=== PATIENT | female | born 1965 | race Caucasian/White ===

== ENCOUNTER → 2017-01-07 | Outpatient (CLI) | payer OTHER ==
--- NOTE | 2017-01-07 09:39 | MM ---
Reason for exam: screening (asymptomatic). Last mammogram was performed 1 year and 2 months ago. History: Patient has history of other cancer at age 34. Family history of breast cancer in cousin at age 55. Physical Findings: A clinical breast exam by your physician is recommended on an annual basis and results should be correlated with mammographic findings. MG 3D Screening Mammo W/Cad Bilateral CC and MLO view(s) were taken. Prior study comparison: November 23, 2015, bilateral MG 3d screening mammo w/cad. September 28, 2014, right breast MG work up mamm w CAD RT. There are scattered fibroglandular densities. Finding: There are typically benign round calcifications in both breasts. There is no discrete abnormality. ASSESSMENT: Benign, BI-RAD 2 RECOMMENDATION: Routine screening mammogram of both breasts in 1 year.
== END | disposition home or self-care (01) ==
LOC: RADMAMWWP 07:47
PROVIDERS: ATTEND Obstetrics & Gynecology
DX: Z12.31 Encounter for screening mammogram for malignant neoplasm of breast (principal)
CPT/HCPCS: 77063; G0202

== ENCOUNTER → 2017-10-30 | Outpatient (CLI) | payer OTHER ==
[2017-10-30 15:50] LABS: T4, Free (Free Thyroxine) 1.26 ng/dL (0.78-2.19)
== END | disposition home or self-care (01) ==
LOC: LABWHC1 14:47
PROVIDERS: ATTEND Internal Medicine Endocrinology, Diabetes & Metabolism
DX: E78.2 Mixed hyperlipidemia (principal); E89.0 Postprocedural hypothyroidism; E55.9 Vitamin D deficiency, unspecified
CPT/HCPCS: 36415; 82306; 84439; 84443

== ENCOUNTER → 2018-01-16 | Outpatient (CLI) | payer OTHER ==
--- NOTE | 2018-01-19 10:50 | MM ---
Reason for exam: screening (asymptomatic). Last mammogram was performed 1 year ago. History: Patient has history of other cancer at age 34. Family history of breast cancer in cousin at age 55. Physical Findings: A clinical breast exam by your physician is recommended on an annual basis and results should be correlated with mammographic findings. MG 3D Screening Mammo W/Cad Bilateral CC and MLO view(s) were taken. Prior study comparison: January 07, 2017, bilateral MG 3d screening mammo w/cad. November 23, 2015, bilateral MG 3d screening mammo w/cad. The breast tissue is heterogeneously dense. This may lower the sensitivity of mammography. There is a 3 x 4mm mass with an associated punctate calcification in the lower inner quadrant of the left, 5-6cm from nipple at middle depth. No suspicious abnormality on the right. ASSESSMENT: Incomplete: need additional imaging evaluation, BI-RAD 0 RECOMMENDATION: Special view mammogram of the left breast. If lesion persists on supplemental views, image directed ultrasound is recommended. [facility] will attempt to contact patient to return for supplemental views and ultrasound if indicated.
== END | disposition home or self-care (01) ==
LOC: RADMAMWWP 15:39
PROVIDERS: ATTEND Obstetrics & Gynecology
DX: Z12.31 Encounter for screening mammogram for malignant neoplasm of breast (principal)
CPT/HCPCS: 77063; 77067

== ENCOUNTER → 2018-01-20 | Outpatient (CLI) | payer OTHER ==
--- NOTE | 2018-01-21 09:08 | MM ---
Reason for exam: additional evaluation requested from abnormal screening. Last mammogram was performed less than 1 month ago. History: Patient has history of other cancer at age 34. Family history of breast cancer in cousin at age 55. Physical Findings: Nurse did not find any significant physical abnormalities on exam. MG 3D Work Up W/Cad LT Spot compression CC, spot compression MLO, and ML view(s) were taken of the left breast. Prior study comparison: January 16, 2018, bilateral MG 3d screening mammo w/cad. January 07, 2017, bilateral MG 3d screening mammo w/cad. The breast tissue is heterogeneously dense. This may lower the sensitivity of mammography. There is a 3mm mass in the left lower inner quadrant 5cm from nipple. with an associated calcification that persists on additional views. There is also a lobulated mass 6mm, 6cm from nipple at 8 o'clock with internal calcifications. These results were verbally communicated with the patient and result sheet given to the patient on 01/20/18. ASSESSMENT: Incomplete: need additional imaging evaluation, BI-RAD 0 RECOMMENDATION: Ultrasound of the left breast. (lower inner quadrant)
--- NOTE | 2018-01-21 09:40 | USB ---
History: Patient has history of other cancer at age 34. Family history of breast cancer in cousin at age 55. US Breast Workup Limited LT Left limited breast ultrasound including focal area of concern, retroareolar and axilla demonstrates a 7 x 3 x 7mm oval, hypoechoic lesion at 8 o'clock thought to correlate with mammographic finding at 6 cm from nipple. Correlate on post biopsy marker placement imaging. These results were verbally communicated with the patient and result sheet given to the patient on 01/20/18. ASSESSMENT: Suspicious, BI-RAD 4 RECOMMENDATION: Ultrasound core biopsy of the left breast. Called Dr. Garibay with mammographic findings and has scheduled an appointment for the patient for 01/30/18 at 9:[address] Gilmore. Biopsy scheduled for 02/02/18 at 8:00. PRELIMINARY REPORT CALLED AND FAXED TO DR. GILMORE ON 01/20/18.
== END | disposition home or self-care (01) ==
LOC: RADMAMWWP 12:42
PROVIDERS: ATTEND Obstetrics & Gynecology
DX: R92.8 Other abnormal and inconclusive findings on diagnostic imaging of breast (principal)
CPT/HCPCS: 77061; 77065

== ENCOUNTER → 2018-01-30 | Outpatient (CLI) | payer OTHER ==
[2018-01-30 16:13] VITALS: BP 143/86; PULSE 92; RESP 18; TEMP 98; BMI 35.2
--- NOTE | 2018-01-30 17:16 | P.GSHP ---
History of Present Illness H&P Date: 01/30/18 Chief Complaint: Abnormal mammogram Patient is a 52-year-old white female who presents for evaluation related to a mammographic abnormality noted on a screening mammogram. She had a bilateral screening mammogram performed on [id number]. On this study at 3 x 4 mm mass with associated punctate calcification was noted in the lower inner quadrant of the left breast. She subsequently had diagnostic mammograms performed which revealed 2 nodular areas that which was initially seen and a second area which was 6 mm lobulated area within internal calculi calcification at the 8 o'clock position. The patient then had a ultrasound performed which identified the second lesion seen but not the first. The patient herself has not felt any masses in her breast. She has been of any pain in her breast. She has no abnormal nipple discharge or skin changes. The patient has a questionable history of trauma to the breast in summer. The patient has no history of any infection in the breast. Had any biopsies of the breast and no surgery to the breast. Family history: 1. patient: thyroid cancer 2. mother: pancreatic cancer 3. father: lung cancer Hormonal History: menarche: 13 : 4, 4 children, first at 26, breast fed: all Periods: irregular BCP: none hormones: none Past Surgical History: 1. thyroid resection total removed 2. right knee meniscus Past Medical History: 1. siclke cell trait 2. Reynard's 3. Mario's 4. Persistent elevated d-dimer 5. being tested for factor V Social History: smoke: none alcohol: none drugs: none - Constitutional Constitutional: Denies chills, Denies fever - EENT Eyes: denies blurred vision, denies pain Ears: deny: decreased hearing, tinnitus Ears, nose, mouth and throat: Denies headache, Denies sore throat - Breasts Breasts: bilateral: as per HPI - Cardiovascular Cardiovascular: Denies chest pain, Denies shortness of breath - Respiratory Comment: asthma Respiratory: Denies cough, Denies 7 - Gastrointestinal Gastrointestinal: Denies abdominal pain, Denies diarrhea, Denies nausea, Denies vomiting - Genitourinary (Female) Genitourinary: Denies dysuria, Denies hematuria - Menstruation Comment: irregular periods - Musculoskeletal Comment: arthritis - Integumentary Integumentary: Denies pruritus, Denies rash - Neurological Neurological: Denies numbness, Denies weakness - Psychiatric Psychiatric: Denies anxiety, Denies depression - Endocrine Comment: thyroid cancer, no radioactive iodine - Hematologic/Lymphatic Comment: aspirin - Allergic/Immunologic Allergic/Immunologic: Reports seasonal allergies Past Medical History Past Medical History: Cancer, Thyroid Disorder Additional Past Medical History / Comment(s): Thyroid cancer History of Any Multi-Drug Resistant Organisms: None Reported Additional Past Surgical History / Comment(s): thyroidectomy, Torn medial meniscus Right knee, Past Psychological History: No Psychological Hx Reported Smoking Status: Never smoker Past Alcohol Use History: None Reported Past Drug Use History: None Reported Medications and Allergies Home Medications Medication Instructions Recorded Confirmed Type Aspirin [Adult Low Dose Aspirin EC] 81 mg PO DAILY 02/05/16 01/30/18 History Cholecalciferol [Vitamin D3] 10,000 unit PO DAILY 03/20/16 01/30/18 History Levothyroxine Sodium [Synthroid] 137 mcg PO DAILY 03/20/16 01/30/18 History Loratadine [Claritin] 10 mg PO DAILY 03/20/16 01/30/18 History Fish Oil/Dha/Epa [Fish Oil 1,200 1 each PO DAILY 01/23/18 01/30/18 History mg Fish Oil] Rosuvastatin Calcium [Crestor] 5 mg PO DAILY 01/23/18 01/30/18 History Allergies Allergy/AdvReac Type Severity Reaction Status Date / Time Sulfa (Sulfonamide AdvReac WBC's drop. Verified 01/30/18 16:16 Antibiotics) Surgical - Exam Vital Signs Temp Pulse Resp BP Pulse Ox 98 F 92 18 143/86 99 01/30/18 16:06 01/30/18 16:06 01/30/18 16:06 01/30/18 16:06 01/30/18 16:06 BMI 35.2 - General well developed, well nourished, no distress - Eyes normal ocular movement - ENT no hearing loss, no congestion - Neck no masses, trachea midline - Respiratory normal respiratory effort, clear to auscultation - Cardiovascular Rhythm: regular Heart Sounds: normal: S1, S2 - Abdomen Abdomen: soft - Integumentary no abnormal pigmentation - Neurologic no disoriented, no combative - Musculoskeletal normal gait, normal posture - Psychiatric oriented to time, oriented to person, oriented to place, speech is normal, memory intact breast exam: right breast: Ultimate positional exam no dominant masses or nodules of concern Right axilla: No adenopathy of concern Left breast: Multi-positional exam no dominant masses or nodules of concern Left axilla: No adenopathy of concern Results mammogram and ultrasound radiographs reviewed with radiologist Assessment and Plan Assessment: Impression: 1. 2 nodular areas noted in the left breast 1 identified by ultrasound and core biopsy recommended 2. Second nodular area which was initially seen on the screening mammogram was not seen by ultrasound depending on the pathology results of the first lesion would consider stereotactic core biopsy of the second lesion 3. Fibrocystic breast changes 4. Hypothyroidism 5. Prior history of thyroid cancer 6. Family history of pancreatic and lung cancer Plan: 1. Ultrasound-guided core biopsy of nodular area in the left breast await results of this biopsy to recommend a course for this second nodular area seen on the initial diagnostic mammogram 2. Follow-up 1 week after ultrasound-guided core biopsy of the lesion in the left breast CC: Dr. Garibay
== END | disposition home or self-care (01) ==
LOC: WWCWWP 16:00
PROVIDERS: ATTEND Surgery
DX: Z53.9 Procedure and treatment not carried out, unspecified reason (principal)

== ENCOUNTER → 2018-02-02 | Day surgery (SDC) | payer OTHER ==
[2018-02-02 07:19] VITALS: BP 148/94; PULSE 88; RESP 16; TEMP 98.6; BMI 35.2
--- NOTE | 2018-02-02 10:38 | USB ---
Discontinued ultrasound core biopsy left breast HISTORY: Left 8:00 lesion COMPARISON: Ultrasound breast: 2318 and mammography dated 01/20/2019 The lesion at the left 8:00 position could not be reproduced confidently for attempted biopsy. MRI of the breasts is recommended. This was discussed with the patient. IMPRESSION: Incomplete assessment BI-RADS 0 Recommendation: MRI of the bilateral breast with attention to the left 8 o'clock position.
== END ==
LOC: RADUSWWP 06:59
PROVIDERS: ATTEND Surgery
DX: R92.8 Other abnormal and inconclusive findings on diagnostic imaging of breast (principal); Z53.8 Procedure and treatment not carried out for other reasons

== ENCOUNTER → 2018-02-25 | Outpatient (CLI) | payer OTHER ==
--- NOTE | 2018-02-27 07:47 | BMR ---
EXAMINATION TYPE: MR breast BILAT wo/w con DATE OF EXAM: 02/25/2018 COMPARISON: Exams dated 01/07/2017, 01/16/2018, 01/20/2018, and 02/02/2018 HISTORY: Abnormal mammogram TECHNIQUE: A series of fat and water weighted images in the long and short axis views of both breasts are obtained in conjunction with dynamic contrast MRI with subtraction technique. The patient was i njected with 10 mL intravenous Gadavist gadolinium contrast. Three-dimensional and additional postp rocessing imaging is created on independent workstation and reviewed during official interpretation o f this study. FINDINGS: The breasts are composed of heterogenous fibroglandular tissue and there is mild symmetric background parenchymal enhancement. A small T2 hyperintense 6 mm cyst without internal enhancement that demonstrates T1 hypointensity is seen at the 8:00 position approximately 6.2 cm from the nipple thought to correspond to the mammograp hic lobulated mass at the 8:00 position. Additionally near the 9:00 position there is a 3 mm T2 hyper intense nonenhancing small cyst that is T1 hypointense approximately 3 cm from the nipple. This is th ought to correspond to the mammographic finding. In the upper outer quadrant of the right breast appr oximately 7.7 cm from the nipple there is a 5 mm cyst. Other scattered cysts are sub-4 mm bilaterally . There is no suspicious mass or nonmass enhancement in either breast. Small clustered cysts are seen i n the upper outer quadrant of the left breast at anterior depth. No suspicious internal mammary or in tramammary adenopathy is present within either breast. Axillary lymph nodes bilaterally appear nonenl arged and short axis. IMPRESSION: BI-RADS 3-probably benign findings. No MRI evidence of malignancy. The lower inner quadrant masses an d anterior and middle depth appear as cysts on MRI without suspicious enhancement. However precaution rere short-term follow-up diagnostic left breast MRI and ultrasound are recommended to ensure stabilit y given the previous recommendation of biopsy.
== END | disposition home or self-care (01) ==
LOC: RADMRIMAIN 12:41
PROVIDERS: ATTEND Surgery
DX: R92.8 Other abnormal and inconclusive findings on diagnostic imaging of breast (principal)
CPT/HCPCS: 77059; 0159T; A9585

== ENCOUNTER 2018-05-25 06:51 | Day surgery (SDC) | payer OTHER ==
[2018-05-22 08:22] VITALS: BMI 34.4
[~2018-05-25 06:51] MED LIST: DEXAMETHASONE SOD PHOSPHATE 10 MG/ML 1 ML VIAL IV ONE; LACTATED RINGERS 1,000 ML IV SCH; LIDOCAINE 1% 20 ML VIAL (10MG/ML) FOR IV START INTRADERMA PRN; MIDAZOLAM 2 MG/2 ML VIAL IV PRN; ceFAZolin IN SWFI 2 GM/20 ML SYRINGE IVP ONE; fentaNYL (PF) 50 MCG/ML 2 ML AMP IV PRN
[2018-05-25] MEDS ORDERED: KETOROLAC 30 MG/ML 1 ML VIAL ONE (08:20)
[2018-05-25] MEDS ORDERED: SUCCINYLCHOLINE CHLORIDE 100 MG/5 ML SYR IV ONE (08:20)
[2018-05-25] MEDS ORDERED: LIDOCAINE 1% INJ 10MG/ML (20 ML MDV) ONE (08:20)
[2018-05-25] MEDS ORDERED: fentaNYL (PF) 50 MCG/ML 2 ML AMP ONE (08:20)
[2018-05-25] MEDS ORDERED: PROPOFOL 10 MG/ML 20 ML VIAL IV ONE (08:20)
[2018-05-25] MEDS ORDERED: MIDAZOLAM 2 MG/2 ML VIAL ONE (08:20)
--- NOTE | 2018-05-25 08:46 | P.OP ---
Date of Procedure: 05/25/18 Preoperative Diagnosis: Increased endometrial thickness, endometrial polyp suggested by sonogram Postoperative Diagnosis: Endometrial polyps, pathology pending Procedure(s) Performed: D&C, hysteroscopy, endometrial polypectomy Anesthesia: THAIS Surgeon: Indira Garibay Estimated Blood Loss (ml): 5 IV fluids (ml): 400 Urine output (ml): 200 Pathology: other (Endometrial curettings and polyps) Condition: stable Disposition: PACU Operative Findings: Endometrial polyps and debris Description of Procedure: Patient is brought to the operating suite where a general anesthetic is administered. She's placed in the dorsal lithotomy position. The cervix, vagina, perineal bodies are all prepped and draped in usual sterile fashion. The appropriate timeout is performed to assure proper patient and procedural identification. No antibiotics are deemed necessary. Urine hCG is negative. Examination under anesthesia reveals a small anteverted uterus, mobile, smooth. Negative adnexa bilaterally. The bladder is drained for approximately 200 mL of clear yellow urine. Weighted speculum was placed into the vagina. Anterior lip of the cervix is grasped with a double-tooth tenaculum. Uterus sounds to a depth of 9 cm in the anteverted position. Cervix is gently and systematically dilated using Hanks dilators. Hysteroscope was introduced and the cavity is distended with sterile saline. Small endometrial polyp along with endometrial proliferative-type tissue is noted. Hysteroscope was removed. A medium sharp curette is used and the polyp is removed along with a moderate amount of endometrial tissue. When this is thoroughly completed, the hysteroscope was once again introduced. The cavity appears to be completely clear. Tenaculum is removed. All sponge needle and enhancement counts are correct at the end of the procedure. Patient is brought back to the recovery room in stable condition. Toradol is given prior to leaving the room. Patient is brought back to the recovery room with a pulse of 56, 99% O2 saturation, blood pressure 100/59. She will follow-up with me in the office in 2 weeks.
[2018-05-25 09:04] VITALS: TEMP 97.8
[2018-05-25 09:39] VITALS: RESP 18
[2018-05-25 10:00] VITALS: BP 124/82; PULSE 78
== END 2018-05-25 10:21 | disposition home or self-care (01) ==
LOC: OR 06:51
PROVIDERS: ATTEND Obstetrics & Gynecology
DX: N84.0 Polyp of corpus uteri (principal); R93.89 Abnormal findings on diagnostic imaging of other specified body structures; E06.3 Autoimmune thyroiditis; E89.0 Postprocedural hypothyroidism; I73.00 Raynaud's syndrome without gangrene; D57.3 Sickle-cell trait; J30.2 Other seasonal allergic rhinitis; I10 Essential (primary) hypertension; E78.5 Hyperlipidemia, unspecified; K21.9 Gastro-esophageal reflux disease without esophagitis; Z85.850 Personal history of malignant neoplasm of thyroid; Z79.82 Long term (current) use of aspirin; Z79.890 Hormone replacement therapy; Z79.899 Other long term (current) drug therapy; Z88.1 Allergy status to other antibiotic agents; Z88.2 Allergy status to sulfonamides
CPT/HCPCS: 81025; 88305; 58558; J2250; J1100; J2001; J3010; J1885; J0330; J2704

== ENCOUNTER → 2018-08-03 | Outpatient (CLI) | payer OTHER ==
[2018-08-03 16:27] LABS: Vitamin D 25 Hydroxy 27.9 ng/mL (30.0-100.0)
[2018-08-03 16:36] LABS: LDL Cholesterol,Calculated 74.2 mg/dL (0.0-131.0); VLDL Calculation 20.8 mg/dL (5.00-40.00)
[2018-08-03 16:44] LABS: T4, Free (Free Thyroxine) 1.2 ng/dL (0.80-1.80)
[2018-08-03 19:40] LABS: Thyroglobulin <0.20 ng/mL (1.60-59.90)
== END | disposition home or self-care (01) ==
LOC: LABWHC1 11:04
PROVIDERS: ATTEND Internal Medicine Endocrinology, Diabetes & Metabolism
DX: C73 Malignant neoplasm of thyroid gland (principal); E55.9 Vitamin D deficiency, unspecified; E03.9 Hypothyroidism, unspecified; R73.03 Prediabetes
CPT/HCPCS: 36415; 80061; 82306; 82947; 84432; 84439; 84443

== ENCOUNTER → 2018-11-27 | Outpatient (CLI) | payer OTHER ==
[2018-11-27 18:46] LABS: T4, Free (Free Thyroxine) 1.6 ng/dL (0.80-1.80)
== END | disposition home or self-care (01) ==
LOC: LABWHC1 13:37
PROVIDERS: ATTEND Internal Medicine Endocrinology, Diabetes & Metabolism
DX: E03.9 Hypothyroidism, unspecified (principal); E55.9 Vitamin D deficiency, unspecified
CPT/HCPCS: 36415; 82306; 84439; 84443